=== PATIENT | male | born 1955 | race Caucasian/White ===

== ENCOUNTER 2019-01-03 09:30 | Outpatient (CLI) | payer BC ==
[2019-01-03 12:27] LABS: #Basophils 0.1 thou/uL (0.0-0.2); #Eosinphils 0.2 thou/uL (0.0-0.7); #Lymphocytes 2.7 thou/uL (1.20-3.40); #Monocytes 0.9 thou/uL (0.11-0.59); #Neutrophils 4.9 thou/uL (1.40-6.50); %Basophils 0.9 % (0.0-1.0); %Eosinophils 1.9 % (0.0-10.0); %Lymphocytes 30.9 % (21.0-51.0); %Monocytes 10.1 % (0.0-10.0); %Neutrophils 56.1 % (42.0-75.0); Hemoglobin 15.3 g/dL (14.0-18.0); Mean Corpuscular HGB CONC 33.3 g/dL (32.0-36.0); Mean Corpuscular Hemoglobin 30.5 pg (27.0-31.0); Mean Corpuscular Volume 91.5 fL (78.0-98.0); Mean Platelet Volume 8.6 fL (7.4-10.4); Platelet Count 242 thou/uL (130-400); RBC Distribution Width 12.1 % (11.5-14.5); Red Blood Cell (RBC) Count 5.03 mill/uL (4.70-6.10); White Blood Cell (WBC) Count 8.7 thou/uL (4.8-10.8)
[2019-01-03 12:33] LABS: ALT (SGPT) 25 U/L (8-55); AST (SGOT) 21 U/L (5-34); Albumin 4.8 g/dL (3.4-4.8); Alkaline Phosphatase 96 U/L (40-110); Anion Gap 13 mmol/L (10-20); BUN (Urea Nitrogen) 23 mg/dL (8.4-25.7); Bilirubin, Total 0.6 mg/dL (0.2-1.2); Calc. Creatinine Clearance 0 mL/min (70-130); Calcium 10.1 mg/dL (7.8-10.44); Carbon Dioxide 27 mmol/L (23-31); Chloride 105 mmol/L (98-107); Estimated GFR-MDRD 63; Globulin 2.6 g/dL (2.4-3.5); Glucose 99 mg/dL (80-115); Potassium 4.6 mmol/L (3.5-5.1); Protein, Total 7.4 g/dL (5.8-8.1); Sodium 140 mmol/L (136-145)
--- NOTE | 2019-01-03 17:02 | EKG ---
Test Reason : Blood Pressure : / mmHG Vent. Rate : 062 BPM Atrial Rate : 062 BPM P-R Int : 142 ms QRS Dur : 096 ms QT Int : 414 ms P-R-T Axes : 045 037 068 degrees QTc Int : 420 ms Normal sinus rhythm Normal ECG Confirmed by EMILY KAM ([id number]) on 01/03/2019 5:02:10 PM Referred By: CHANDANA Confirmed By:EMILY KAM
== END 2019-01-03 09:31 | disposition home or self-care (01) ==
LOC: LABBT 09:30
PROVIDERS: ATTEND Surgery
DX: Z01.818 Encounter for other preprocedural examination (principal); K40.90 Unilateral inguinal hernia, without obstruction or gangrene, not specified as recurrent
CPT/HCPCS: 80053; 85025; 93005; 93010

== ENCOUNTER 2019-01-08 05:41 | Day surgery (SDC) | payer BC ==
[2019-01-03 10:38] VITALS: BMI 26.4
[2019-01-08] MEDS ORDERED: Midazolam HCl 2 mg/2 ml Vial ONE ×2 (06:14→06:32)
[2019-01-08] MEDS ORDERED: Fentanyl 100 MCG/2 ML VIAL ONE (06:14)
[2019-01-08] MEDS ORDERED: Bupivacaine HCl 0.25%/Epi 0.0005/PF 10 ML VIAL FS ONE ×2 (06:34→06:44)
[2019-01-08 06:55] LABS: Cardiac Risk 3.7 (Less than 4.5)
[2019-01-08] MEDS ORDERED: Scopolamine 1.5 mg/72 hour Patch ONE (07:09)
--- NOTE | 2019-01-08 07:16 | HP ---
CHIEF COMPLAINT: Left inguinal hernia. HISTORY OF PRESENT ILLNESS: The patient is a 63-year-old male with enlarging left inguinal hernia, reducible. It causes some discomfort. PAST MEDICAL HISTORY: Seasonal nasal spray, Singulair. He has seasonal allergies. PAST SURGICAL HISTORY: He had a right elbow fracture repaired at age 33. ALLERGIES: HE HAS NO KNOWN DRUG ALLERGIES. FAMILY HISTORY: Father alive with heart disease. Mother with heart disease. SOCIAL HISTORY: He is a retired collateral specialist. No tobacco. No alcohol. PHYSICAL EXAMINATION: VITAL SIGNS: Height 68, weight 192, and body mass index 29.19. GENERAL: Well-developed, well-nourished male, in no apparent distress. HEENT: Unremarkable. LUNGS: Clear. HEART: Regular rate and rhythm. ABDOMEN: Soft, nondistended, and nontender. He has a diastasis recti. No hernia. EXTREMITIES: Good pulses. No pedal edema. GENITAL: He has a scrotal left inguinal hernia, reducible. No right-sided hernia. ASSESSMENT: Large left inguinal hernia. PLAN: Left inguinal hernia repair with mesh. CONSENT: I have discussed planned procedure as well as risk of bleeding, infection, and recurrence. He understands and gives informed consent. Job ID: [id number]
[2019-01-08] MEDS ORDERED: Dexamethasone 4 mg/ml Vial ONE (07:22)
--- NOTE | 2019-01-08 09:23 | OP ---
DATE OF PROCEDURE: 01/08/2019 PREOPERATIVE DIAGNOSIS: Left inguinal hernia. PROCEDURE PERFORMED: Left inguinal hernia repair with mesh. INDICATIONS: A 63-year-old male, who had a painful left inguinal hernia. FINDINGS: Left indirect inguinal hernia. DESCRIPTION OF PROCEDURE: After informed consent was obtained, the patient was taken to the operating room. He had been given tap blocks preoperatively. His groin area was prepped and draped in usual fashion. A transverse inguinal incision was performed. Subcu divided sharply. The fascia and external oblique were incised in the direction of its fibers through the external ring. Spermatic cord was isolated with a Swanton drain. Cremasteric fibers were . The hernia sac was found. It was dissected from surrounding cord structures down to the internal ring and reduced. Reduction was maintained utilizing a PHS hernia system. Posterior layer placed in the preperitoneal space, anterior was laid out, sutured to the pubic tubercle medially, tucked under the external oblique fascia laterally. The cord was placed anatomic. Hemostasis was assured. The external oblique and fascia closed with a running 3-0 Vicryl. Peña was closed with interrupted 3-0 Vicryl, and the skin closed with a running subcuticular 4-0 Rapide. Steri-Strips applied. Sterile bandage applied. The patient tolerated the procedure well, transferred to Recovery in good condition. Sponge and needle count verified correct x2. Job ID: [id number]
[2019-01-08] MEDS ORDERED: HYDROcodone/Acetaminophen 5/325 mg Tablet ONE (10:07)
[2019-01-08] MEDS ORDERED: PROPOFOL 200 MG/20 ML VIAL ONE (15:00)
[2019-01-08] MEDS ORDERED: Ondansetron PF 4 MG/2 ML Vial ONE (15:00)
[2019-01-08] MEDS ORDERED: Ketorolac Tromethamine 30 MG/ML VIAL ONE (15:00)
[2019-01-08] MEDS ORDERED: Dexamethasone 20 MG/5 ML VIAL ONE (15:00)
== END 2019-01-08 10:15 | disposition home or self-care (01) ==
LOC: SDC 05:41
PROVIDERS: ATTEND Surgery
PROC: 0YU60JZ Supplement Left Inguinal Region with Synthetic Substitute, Open Approach (ICD-10-PCS; principal; 2019-01-08)
DX: K40.90 Unilateral inguinal hernia, without obstruction or gangrene, not specified as recurrent (principal); H66.90 Otitis media, unspecified, unspecified ear; Z88.5 Allergy status to narcotic agent
CPT/HCPCS: 80061; C1781; J0690; J1100; J1885; J2250; J2405; J2704; J3010